=== PATIENT | male | born 1965 | race Caucasian/White ===

== ENCOUNTER 2017-02-18 14:59 | Emergency (ER) | payer OTHER ==
[~2017-02-18] VITALS: Ht 167.6 cm; Wt 80.5 kg
[2017-02-18 15:03] VITALS: Ht 167.6 cm; Wt 80.5 kg
[2017-02-18] MEDS ORDERED: NPH10OT RIGHT EAR (15:14)
[2017-02-18] MEDS ORDERED: IBUP800T25 PO (15:14)
--- NOTE | 2017-02-18 15:22 | ERD ---
ER Documentation Chief Complaint Date/Time DATE: 02/18/17 TIME: 15:19 Chief Complaint RT EAR PAIN WITH DIZZINESS HPI Patient is an otherwise healthy 51-year-old male who presents with right-sided ear pain that he has had for about 3 weeks. He states at times he feels dizziness and he describes the dizziness as the room spinning and gets worse when he moves his head. He was seen at a primary care doctor who gave him meclizine 12.5 mg but it does not help. He denies any chest pain or shortness of breath. Denies any palpitations. Denies any bleeding or drainage from the ear. Denies any fever. Denies any changes to his hearing. Denies any ringing in his ear. He has not taken any medications for pain. ROS All systems reviewed and are negative except as per history of present illness. Medications Home Meds Active Scripts Ibuprofen* (Motrin*) 800 Mg Tab, 800 MG PO Q6, #30 TAB Prov:DOROTHY WITT PA-C 02/18/17 Neomycin/Polymyxin/Hydrocort* (Cortisporin* Otic) 10 Ml Susp, 4 DROP RIGHT EAR QID for 7 Days, EA Prov:DOROTHY WITT PA-C 02/18/17 Allergies Allergies: Coded Allergies: No Known Allergy (Unverified , 02/18/17) FmHx Family History: No diabetes Physical Exam Vitals Vital Signs Date Time Temp Pulse Resp B/P Pulse Ox O2 Delivery O2 Flow Rate FiO2 02/18/17 15:03 98.0 76 16 131/86 97 Physical Exam General: well developed, well nourished, alert, nontoxic, no distress Head: normocephalic, atraumatic Eyes: PERRL, normal conjunctiva Neck: Supple, nontender, no lymphadenopathy, no midline tenderness Ears: no tenderness over mastoids bilaterally, TMs nonerythematous, scant exudate in the right ear canal, left ear within normal limits Oropharynx: no tonsilar erythema or edema, uvula midline, no exudates, no kissing tonsils, no drooling Respiratory: Clear to auscaultation bilaterally, speaks in full sentences, no use of accesory muscles or labored breathing, no rales, ronchi, or wheezing Cardiovascular: RRR, No murmurs Procedures/MDM 51-year-old presents with benign positional vertigo. He also has earache and possible early otitis externa and here. His vital signs are normal. He has no chest pain or shortness of breath. He has tried meclizine however he has tried a very low dose and I believe he should take between 25 and 50 mg when he gets flareups. I gave him a prescription for Cortisporin eardrops as well as ibuprofen for pain. I also gave him referral to ears nose and throat specialist Recommended this patient follow up with her primary care doctor within 48 hours or return to the emergency room for any worsening of symptoms. However this time I do believe there is suitable for outpatient management. I answered all their questions and they agreed with the plan and were discharged home. Departure Diagnosis: Primary Impression: Benign positional vertigo Condition: Stable Patient Instructions: Benign Positional Vertigo Referrals: NAMRATA DE LOS SANTOS MD, YUSRA SCHILLING,MEAGAN HODGES,GLORY RAMIRES,JONY PRESCOTT,YOMI Tong MD [facility] YOU HAVE RECEIVED A MEDICAL SCREENING EXAM AND THE RESULTS INDICATE THAT YOU DO NOT HAVE A CONDITION THAT REQUIRES URGENT TREATMENT IN THE EMERGENCY DEPARTMENT. FURTHER EVALUATION AND TREATMENT OF YOUR CONDITION CAN WAIT UNTIL YOU ARE SEEN IN YOUR DOCTORS OFFICE WITHIN THE NEXT 1-2 DAYS. IT IS YOUR RESPONSIBILITY TO MAKE AN APPOINTMENT FOR FOLOW-UP CARE. IF YOU HAVE A PRIMARY DOCTOR --you should call your primary doctor and schedule and appointment IF YOU DO NOT HAVE A PRIMARY DOCTOR YOU CAN CALL OUR PHYSICIAN REFERRAL HOTLINE AT . IF YOU CAN NOT AFFORD TO SEE A PHYSICIAN YOU CAN CHOSE FROM THE FOLLOWING [facility] INSTITUTIONS: [facility] [id number] [place] [address] [facility] [address] [place] [address] [facility] [address] [place] [address] Additional Instructions: Call your primary care doctor TOMORROW for an appointment during the next 1-2 days.See the doctor sooner or return here if your condition worsens before your appointment time. DOROTHY WITT PA-C Feb 18, 2017 15:22
== END 2017-02-18 15:18 | disposition home or self-care (01) ==
LOC: E/R 14:59
DX: H81.11 Benign paroxysmal vertigo, right ear (principal)
CPT/HCPCS: 99283